=== PATIENT | female | born 1945 | race Caucasian/White ===

== ENCOUNTER 2021-11-05 20:22 | Emergency (ER) | payer MEDICARE, SELFPAY ==
[2021-11-05 20:23] VITALS: BP 168/80; PULSE 85; RESP 16; TEMP 36.8; O2SAT 98; BMI 38.4
--- NOTE | 2021-11-05 20:32 | EDS_ITS ---
HPI HPI - Fall History of Present Illness Chief Complaint: Fall Informant: patient and EMS Narrative Narrative: Brought in by EMS from [facility] for mechanical fall prior to arrival. Cataract surgery 4 months ago with monovision. Small steps that she did not see tripping over hitting her head. No loss of consciousness. Contusion noted. She takes Eliquis for history of paroxysmal atrial fibrillation. Last dose this morning. Did bump her hands however denies any pain currently. No shoulder or neck back chest or abdominal pain. No lower extremity pain. She had total knee arthroplasties in the past. She wears oxygen as needed more at night. She is visiting. She has been using oxygen throughout the day with humidity. Denies dyspnea or cough. Tetanus was 3 years ago. Tetanus Immunization: <5 years [facility] Medical History (Updated 11/05/21 @ 22:[address] Wagner Grsos DO) A-fib Absence, lung Atrial flutter Allergy/AdvReac Type Severity Reaction Status Date / Time hydromorphone [From Dilaudid] Allergy Hives Verified 11/05/21 20:26 meperidine [From Demerol] Allergy Hives Verified 11/05/21 20:26 Penicillins Allergy Rash Verified 11/05/21 20:26 Sulfa (Sulfonamide Allergy Rash Verified 11/05/21 20:26 Antibiotics) Surgical History (Updated 11/05/21 @ 21:12 by Mary Betts) H/O aortic valve replacement Social History Smoking Status: Never smoker ROS ROS ED Constitutional Constitutional ED: Denies chills, fever(s) or sweats Eyes Eyes: Denies change in vision ENT ENT ED: Denies dysphagia or sore throat Cardiovascular Cardiovascular: Denies chest pain, leg edema, palpitations or racing heartbeat Respiratory/Chest Respiratory/Chest: Denies cough, dyspnea or dyspnea on exertion Gastrointestinal Gastrointestinal: Denies abdominal pain, diarrhea, nausea or vomiting Genitourinary Genitourinary ED: Denies dysuria, hematuria or urinary frequency Musculoskeletal Musculoskeletal: Denies back pain, extremity pain or neck pain Integumentary Reports wounds and other Details: Facial contusion with hematoma ; Denies rash Neurologic Neurologic: Denies headache(s), paresthesias or weakness EXAM Physical Exam Const Vital Signs: 11/05/21 20:23 11/05/21 21:15 Temperature 98.3 F Temperature Source Oral Pulse Rate 85 Respiratory Rate 16 Respiratory Effort Normal Non-Labored Respiratory Depth Normal Respiratory Pattern Normal Blood Pressure 168/80 H Blood Pressure Mean 109 Pulse Ox 98 Oxygen Delivery Method Nasal Cannula Room Air Oxygen Flow Rate (L/min) 3 Positive well nourished and well developed Constitutional Narrative: GCS 15 General Appearance ED: well developed and NAD HEENT Reports moist mucous membranes HEENT Narrative: 4 cm hematoma noted right frontal small abrasion with no active bleeding. No hemotympanums. normocephalic Eyes PERRL, EOMs intact bilaterally and conjunctivae normal General Eye ED: Yes normal appearance of both eyes Neck full ROM, no lymphadenopathy and supple Neck Narrative: No midline tenderness or step-offs. General: Negative for tenderness Chest Wall inspection of chest normal and palpation of chest normal Chest: Negative for tenderness Resp normal respiratory effort and normal air movement Effort and Inspection: symmetric chest movement; Negative for respiratory distress Cardio regular rate, regular rhythm and no murmurs Peripheral Pulses: pulses 2+ throughout GI normal to inspection, nondistended, normoactive bowel sounds and non-tender Palpation: Negative for guarding or rebound tenderness present Back/Spine no CVA tenderness and no thoracic nor lumbar tenderness Back/Spine Narrative: No midline thoracic or lumbar tenderness. No step-offs. Extremity normal to inspection Extremity Narrative: Active full range of motion x4 extremities. Negative logroll lower extremities. No deformities. Neuro vas intact distally x4. General Extremety ED: Negative for edema or tenderness General Extremity: Negative for edema Neuro oriented x3, CN's II-XII intact bilaterally and no sensory deficits noted Sensorium / Orientation: awake and alert Skin no rashes or lesions noted and no wounds MDM MDM MDM Narrative Medical decision making narrative: Patient no focal deficit large scalp hematoma on the forehead. She is on Eliquis. Trauma scans head face and neck all negative for acute process soft tissue swelling was noted. Patient tetanus up-to-date. She is able ambulate in the department. She will use Tylenol as needed. She will follow-up as an outpatient. Return precautions. All questions were answered. Radiography Diagnostic Testing: Clinical Impression(s) from Imaging Studies Brain CT 11/05/21 20:45 IMPRESSION: No acute intracranial pathology. Right scalp hematoma. Chronic paranasal sinus disease. Electronically Signed: Luís Warren DO at 21:06 EDT , Cervical Spine CT 11/05/21 20:45 IMPRESSION: No fracture or focal malalignment. Somewhat limited assessment, especially in the proximal spine due to mild motion. Multiple fused facet joints and C5-6 and C6-7 advanced degenerative disc and endplate changes which appear to result in at least moderate neural foraminal narrowing. Electronically Signed: Luís Warren DO at 21:13 EDT , Facial/Sinus 11/05/21 20:45 IMPRESSION: Right frontal scalp hematoma without underlying fracture. Chronic paranasal sinus disease. Electronically Signed: Luís Warren DO at 21:17 EDT , Discharge Plan Triage Chief Complaint: Fall ED Provider: Wagner Gross Dx/Rx/DC Orders Clinical Impression: CHI (closed head injury), Facial hematoma, Paroxysmal atrial fibrillation Instructions: ED Facial Contusion, ED Head Injury (Adult), ED Hematoma Primary Care Provider: JMAILA MUJICA Referrals: [facility] Doctor,Out of [NON-STAFF] - Activity Restrictions/Additional Instructions: CT head face and cervical spine negative for fracture or intracranial bleeds. Facial hematoma noted. Continue ice. Use Tylenol as needed. Disposition Disposition: Home, Self Care Discharge Date/Time: 11/05/21 22:18
--- NOTE | 2021-11-05 20:45 | CT_ITS ---
INDICATION: traumatic injury EXAMINATION: CT FACIAL BONES - CT Maxillofacial W/O Contrast Injection TECHNIQUE: Helically acquired images were obtained of the facial bones. A radiation dose optimization technique was used for this scan. IV Contrast dosage and agent: None. COMPARISON: CT head and cervical spine obtained in conjunction with this exam. FINDINGS: SOFT TISSUES: Right lateral frontal region scalp hematoma without underlying calvarial fracture. Soft tissues of the face show no swelling or fluid collection. VISUALIZED PARANASAL SINUSES: Paranasal sinuses are notable for small bilateral maxillary sinuses with coastal thickening and calcifications left maxillary sinus likely representing chronic sinus disease. Left frontal sinus is undeveloped. VISUALIZED MASTOID AIR CELLS: Clear. FACIAL BONES, MANDIBLE AND TMJs: No displaced facial bone fracture. No lytic or blastic abnormality. VISUALIZED DENTITION: No periodontal osseous erosion. Moderate right-sided temporomandibular joint arthritis. ORBITAL CONTENTS: Both globes, extraocular muscles and retrobulbar fat appear unremarkable. Craniocervical junction well-visualized without motion and no fracture demonstrated. Advanced degenerative changes atlantoaxial articulation. CT/Sinus/Facial Bone IMPRESSION: Right frontal scalp hematoma without underlying fracture. Chronic paranasal sinus disease. Electronically Signed: Luís Warren DO at 21:17 EDT ,
--- NOTE | 2021-11-05 20:45 | CT_ITS ---
INDICATION: traumatic injury EXAMINATION: CT CERVICAL SPINE - CT Spine Cervical W/O Contrast Injection TECHNIQUE: Helically acquired images were obtained of the cervical spine. 2D reformatted images were reviewed. A radiation dose optimization technique was used for this scan. IV Contrast dosage and agent: None. COMPARISON: CT head and sinuses obtained in conjunction with this exam. FINDINGS: Mild motion artifact at the level of the skull base C1 articulations. VERTEBRAE: No fracture or traumatic subluxation. No discrete lytic or blastic abnormality. Loss of normal lordosis with smooth gradual kyphosis, likely degenerative, centered at C5-6. Craniocervical junction moderately obscured. No abnormality within limits of the exam. DISCS and SPINAL CANAL: C2-3 and C3-4 facet joints are fused bilaterally. C4-5 facet joint is fused on the right. Left C7-T1 facet joint is fused. C5-6 and C6-7 advanced degenerative disc and endplate changes. Associated uncovertebral joint arthropathy is levels appears to result in at least moderate bilateral neural foraminal narrowing, worsened by facet hypertrophy. NECK SOFT TISSUES: Limited assessment of the soft tissues due to swallowing motion. No prevertebral soft tissue swelling. No mass lesion. There are carotid bulb calcifications. LUNG APICES: No consolidation, pneumothorax or mass. CT/Spine Cervical without Contras IMPRESSION: No fracture or focal malalignment. Somewhat limited assessment, especially in the proximal spine due to mild motion. Multiple fused facet joints and C5-6 and C6-7 advanced degenerative disc and endplate changes which appear to result in at least moderate neural foraminal narrowing. Electronically Signed: Luís Warren DO at 21:13 EDT ,
--- NOTE | 2021-11-05 20:45 | CT_ITS ---
INDICATION: traumatic injury EXAMINATION: CT BRAIN - CT Head or Brain W/O Contrast Injection TECHNIQUE: Multiple axial images were obtained of the head without intravenous contrast. A radiation dose optimization technique was used for this scan. IV Contrast dosage and agent: None. COMPARISON: CT sinuses from 11/05/2021. FINDINGS: BRAIN PARENCHYMA: No intra- or extra-axial hemorrhage. No intracranial mass or mass effect. Blunt/white matter differentiation is maintained and there is no blurring of the basal ganglia. There is no hyperdense vessel. Extensive cavernous carotid artery intimal calcifications with minimal chronic small vessel ischemic changes of the periventricular white matter. Posterior fossa structures are unremarkable. CSF SPACES: Well-maintained for age. No hydrocephalus. Basal cisterns are patent. CALVARIUM, SKULL BASE, PARANASAL SINUSES AND MASTOID AIR CELLS: Underdeveloped left frontal sinus and partially opacified right frontal sinus and ethmoid air cells, sphenoid sinuses and visualized portions of maxillary sinuses consistent with chronic sinus disease. No discrete lytic or blastic abnormalities. Right lateral frontal scalp hematoma with no underlying fracture. ORBITS: Both globes, extraocular muscles, optic nerves and retrobulbar fat appear unremarkable. ASPECTS Score for Acute Strokes: 10 CT/Brain/Head without Contrast IMPRESSION: No acute intracranial pathology. Right scalp hematoma. Chronic paranasal sinus disease. Electronically Signed: Luís Warren DO at 21:06 EDT ,
== END 2021-11-05 22:18 | disposition home or self-care (01) ==
PROVIDERS: Emergency Provider Emergency Medicine; Visit Provider Emergency Medicine
DX: S00.03XA Contusion of scalp, initial encounter (principal); I48.0 Paroxysmal atrial fibrillation; W18.09XA Striking against other object with subsequent fall, initial encounter; Y92.59 Other trade areas as the place of occurrence of the external cause; Z79.01 Long term (current) use of anticoagulants; Z95.2 Presence of prosthetic heart valve; S00.81XA Abrasion of other part of head, initial encounter
CPT/HCPCS: 70450; 70486; 72125; 99284